=== PATIENT | female | born 1955 | race Caucasian/White ===

== ENCOUNTER 2017-01-31 16:21 | Emergency (ER) | payer OTHER ==
[~2017-01-31] VITALS: Ht 152.4 cm; Wt 68.5 kg
[~2017-01-31 16:21] MED LIST: CALCIUM PO; CHOL500014 PO; DEXL60CA PO; DULO60CA7 PO; ESTRADIOL SL; LEVO25TA2 PO; LIOT5TAB3 PO; OLME20TA PO; OMEG1CAP2 PO; ONDA4TAB10 PO; TESTOSTERONE SL
[2017-01-31] MEDS ORDERED: ONDANSETRON 2MG/ML, 2ML IVPush ONE (17:00)
[2017-01-31] MEDS ORDERED: SODIUM CHLORIDE FLUSH 10ML SYR IVF ONE (17:00)
[2017-01-31] MEDS ORDERED: SODIUM CHLORIDE 0.9% 1,000ML IVBOLUS ONE (17:00)
[2017-01-31 17:34] LABS: BLOOD UREA NITROGEN 20 mg/dL (7-18)
[2017-01-31 17:39] LABS: IS PT STATUS REG ER OR PRE ER? YES
[2017-01-31] MEDS ORDERED: IBUPROFEN 200 MG TABLET ONE (19:40)
[2017-01-31] MEDS ORDERED: IBUPROFEN 200 MG TABLET PO ONE (20:00)
[2017-01-31] MEDS ORDERED: PLEASE ENTER ALLERGIES MC SCH ×2 (20:00)
[2017-01-31 20:11] VITALS: BP 141/73
== END 2017-01-31 20:11 | disposition home or self-care (01) ==
LOC: ED 20:05
DX: R51 Headache (principal); R07.89 Other chest pain; I10 Essential (primary) hypertension
CPT/HCPCS: 36415; 70450; 71010; 80048; 82040; 84484; 85025; 93005; 99285; J7030